=== PATIENT | female | born 1985 | race Caucasian/White ===

== ENCOUNTER → 2017-01-02 13:40 | Observation (INO) ==
--- NOTE | 2017-01-06 15:40 | Discharge Summary ---
Date of Encounter: 01/02/17 Time of Encounter: 13:35 - Discharge Diagnosis (1) 38 weeks gestation of Priority: Secondary Status: Acute (2) NST (non-stress test) reactive Priority: Primary Status: Acute - Discharge Medications Home Medications: Ferrous Sulfate [Iron] 1 tab PO BID 01/02/17 [History] Vit/Iron Fumarate/FA [ Tablet] 1 tab PO DAILY 01/02/17 [History ] Allergies/Adverse Reactions: Allergies Penicillins Allergy (Unknown, Verified 01/02/17 12:33) See Comments States she doesn't know. Had an adverse reaction as an infant. Date of admission: 01/02/17 12:07 Primary care physician: Christiane Juarez CNP - Patient Status Disposition: Home, Self-Care Condition: Good Overall status at discharge: patient is back to baseline - Discharge Instructions Follow Up With: Christiane Juarez CNP [Primary Care Provider] - Additional Instructions: LABOR AND DELIVERY DISCHARGE INSTRUCTIONS Signs and Symptoms to be Reported to your Doctor Immediately: * Sudden gush, continuous or intermittent lead of fluid from vagina (note the time of gush and color of fluid) * Onset of bright red vaginal bleeding with or without pain (if you had a vaginal exam during this visit you may notice some dark red spotting. This is normal.) * Contractions that are 5 minutes apart (from the beginning of one contraction to the beginning of the next) and last 45-60 seonds; contractions that you can no longer walk, talk or laugh through. * A change in the baby's activity. This could be an increase or decrease in activity. * Severe headache which does not go away with tylenol. * Sudden swelling in the face, hands, arms and/or legs. * Upper abdominal pain - sometimes associated with heartburn or nausea and is not relieved by Maalox, Mylanta or Tums. * Kick Counts __ One hour after a meal, lay down on one side in a quiet place. Count the number of time the baby moves during an hour. If less than 6 movements, notify your physician Diet: *Force fluids, 8 to 10 tall glasses of fluid per day - may include popsicles and jello *Limit caffeine - this includes chocolate, coffee, tea, any soft drink containing such as all karlo, Roland Yellow and Mountain Dew - Diet and Activity Activity: increase activity as tolerated Diet: advance to your usual diet Hospital Course NURSE CHEMICAL DEPENDENCY Time Attestation: Total time spent providing and/or coordinating discharge services: Exam - Constitutional Vitals: per nursing - VTE Reasons for not Prescribing Prophylaxis: Medical contraindication - Attending Attestation nate jameson md facog
== END | disposition home or self-care (01) ==
LOC: 1NENULAB
PROVIDERS: ADMIT Obstetrics & Gynecology; ATTEND Obstetrics & Gynecology

== ENCOUNTER 2017-01-08 06:00 | Inpatient (IN) ==
[2017-01-08] MEDS ORDERED: Metoclopramide 10 MG/2 ML VIAL IVP PRN (06:06)
[2017-01-08] MEDS ORDERED: miSOPROStol 25 MCG TABLET VG PRN (06:06)
[2017-01-08] MEDS ORDERED: Famotidine 20 MG/2 ML VIAL IVP PRN (06:06)
[2017-01-08] MEDS ORDERED: *HR* Nalbuphine 20 MG/ML AMPUL IVP PRN (06:11)
[2017-01-08] MEDS ORDERED: D5% in 0.45% NACL 1,000 ML IVC SCH (06:15)
[2017-01-08 06:37] LABS: Basophils % 0.3 %; Eosinophils # 0.1 K/mcL (0.0-0.6); Eosinophils % 1.2 %; Hematocrit 33.8 % (35.3-44.9); Hemoglobin 11.2 g/dL (11.5-15.4); Immature Granulocytes % 0.8 % (0-4); Lymphocytes # 2.6 K/mcL (0.6-4.6); Lymphocytes % 25.9 %; Mean Corpuscular HGB Conc 33.1 g/dL (31.6-35.5); Mean Corpuscular Hemoglobin 28.1 pg (28.0-33.3); Mean Corpuscular Volume 84.9 fL (83.0-100.0); Mean Platelet Volume 11.5 fL (9.4-12.4); Monocytes # 0.9 K/mcL (0.0-1.3); Monocytes % 9.3 %; Neutrophils # 6.3 K/mcL (1.6-8.9); Platelet Count 157 K/mcL (140-400); Red Blood Count 3.98 M/mcL (3.82-4.97); Red Cell Distribution Width 14.9 % (11.5-14.5); Segmented Neutrophils % 62.5 %
--- NOTE | 2017-01-08 07:48 | Anesthesia Evaluation PreOp ---
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 Had an adverse reaction as an . 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
[2017-01-08] MEDS ORDERED: Epidural Premix (fent/bupiv) 110 ML EP ONE (07:57)
--- NOTE | 2017-01-08 08:01 | OB/GYN History & Physical ---
Date of Encounter: 01/08/17 Time of Encounter: 07:59 Assessment and Plan (1) 40 weeks gestation of Current visit: Yes Status: Acute -Uncomplicated . Desires vaginal delivery -Planned induction in the next 24 hours. (2) Hepatitis Current visit: No Status: Chronic -Use extra precautions during delivery. (3) Cystic hygroma of fetus Current visit: Yes Status: Acute -Induction recommended at 39 weeks due to risk of still History of Present Illness Chief complaint: induction HPI: Ms. Dimas is a 31 year old female, 39 w 0d, , Hep C positive c/c for recommended induction. Patient is resting comfortably in bed. Denies any N/D/ Abdominal pain/pelvic pain. States that she does use a vaporizer daily. Has used IV drugs in the past. Fetus does have cystic hygroma, MFM at [facility] recommended patient have an induction at 39w for risk of still . Other vaginal deliveries were premature, but otherwise, uncomplicated. Past Med Surg Social Fam HX - Past Medical History Medical history: hepatitis (IV drug use. 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 Vaginal delivery uncomplicated. Medications and Allergies Ferrous Sulfate [Iron] 1 tab PO BID 01/02/17 [History] Vit/Iron Fumarate/FA [ Tablet] 1 tab PO DAILY 01/02/17 [History ] Allergies Penicillins Allergy (Unknown, Verified 01/02/17 12:33) See Comments States she doesn't know. Had an adverse reaction as an infant. Review of System OB - Cardiovascular Cardiovascular: no irregular heart rhythm - Respiratory Respiratory: wheezing, no dyspnea, no excessive phlegm production - Gastrointestinal Gastrointestinal: no abdominal pain, no heartburn - Neurological Nerological: no headache(s), no syncope - Psychiatric Psychiatric: no auditory hallucinations Exam - Vital Signs Vital signs: Initial Vital Signs Temp Pulse Resp BP 98.3 F 99 18 114/74 01/08/17 06:24 01/08/17 06:24 01/08/17 06:24 01/08/17 06:24 - Constitutional Constitutional: well developed, well nourished, no acute distress, average body habitus - HEENT HEENT: Normocephaly, Mucus Membranes Moist - Lungs Respiratory exam: wheezes (mild ) - Cardiovascular Cardiovascular exam: RRR - Abdomen Abdomen: Present: non tender Results Result Diagrams: 01/08/17 06:26 Abnormal lab results Hgb 11.2 g/dL (11.5-15.4) L 01/08/17 06:26 Hct 33.8 % (35.3-44.9) L 01/08/17 06:26 RDW 14.9 % (11.5-14.5) H 01/08/17 06:26 All other labs normal. - VTE Reasons for not Prescribing Prophylaxis: Treatment not Indicated - Low risk for VTE
[2017-01-08] MEDS ORDERED: Ringers Solution, Lactated 1,000 ML ONE ×2 (10:51→12:59)
--- NOTE | 2017-01-08 10:52 | OB Labor Progress Note ---
Date of Encounter: 01/08/17 Time of Encounter: 10:49 Labor Progress Note - Subjective Subjective: Patient resting in bed, denies any pain at this time. Discussed POC with patient. Patient denies any questions or concerns. - Cervix Cervix: 4/90/-1 - Heart Tones Heart Tones: 135 bpm moderate variability +15x15 accels no decels noted. CAt. 1 tracing. - [place]: 2-3 min apart - Interventions Interventions: SVE, AROM moderate amount of clear fluid. IUPC placed without difficulty. Patient tolerated well. - Plan Plan: Continue labor management.
[2017-01-08] MEDS ORDERED: EPHEDrine 50 MG/ML VIAL ONE (12:22)
--- NOTE | 2017-01-08 12:25 | Anesthesia Procedures ---
Date of Encounter: 01/08/17 Time of Encounter: 12:00 Procedures: Anesthesia - Epidural/Spinal Patient ID/Chart reviewed: Yes Patient examined: Yes OB Eval: Gestational age: term OB Eval: : 3 OB Eval: Hx Para: 2 OB Eval: Contractions: Non-stressed pattern Consent Obtained: Yes Site Prep: Aseptic Technique, Sterile prep and drape, 0.5% Chlorhexidine/Alcohol Patient position: upright Local Anesthetic: Lidocaine 1% Amount of Local Anesthetic used: 2 Touhy Needle Gauge: 18 Touhy Needle Depth (cm): 6 Catheter Depth at Skin (cm): 10 Test Dose (1.5% Lido + Epi): Volume given (mls): 3 Test Dose Result: Negative Loading Dose: Other: 12ml from solution Loading Dose Administered: Thru Catheter Infusion Med: 0.125% Bupivacaine w/ 2 mcg/ml Fentanyl Infusion Rate (mls/hr): [address]: Tegaderm, Tape Interspace Used: L3-L4 Loss of Resistance (JEROME): Yes (saline) Blood: No CSF: No Paresthesia: No Vitals + FHT's: vss though out, FHR stable per RN's
[2017-01-08] MEDS ORDERED: Oxytocin 20 units/ LR 1000 mL 20 UNIT/1,000 ML BAG IVC ONE ×2 (14:42→20:47)
--- NOTE | 2017-01-08 15:52 | OB/GYN Procedure Note ---
Delivery - Delivery Date: 01/08/17 Provider: Juan Luis Mishra Intrapartum events: none Delivery induction: misoprostol Delivery augmentation: rupture of membranes Delivery monitor: external FHT, external uterine, internal uterine Anesthesia: epidural Estimated Blood Loss: 300 - (s) A Infant Delivery Date: 01/08/17 Infant Delivery Time: 15:34 Presentation: vertex Position: JOSE ANTONIO Route of delivery: Gender: Male Viability: Viable Pounds: 7 Ounces: 6 Weight Gram: 3345 kg at 1 minute: 8 at 5 mins: 8 Shoulder Dystocia: not encountered Specimens collected: cord blood Placenta: spontaneous Cord: nuchal cord, nuchal cut - Repair Episiotomy: none Laceration Description: None - Complications Delivery complications: none - Disposition Mom disposition: stable in LDR disposition: stable in LDR
[2017-01-08] MEDS ORDERED: Sennosides 8.6 MG TABLET PO PRN (20:47)
[2017-01-08] MEDS ORDERED: Rho Immune Globulin 1,500 UNIT SYRINGE IM PRN (20:47)
[2017-01-08] MEDS ORDERED: Measles/Mumps/Rubella Vacc 0.5 ML VIAL SQ PRN (20:47)
[2017-01-08] MEDS ORDERED: Oxytocin 20 units/ LR 1000 mL 20 UNIT/1,000 ML BAG IV SCH (20:47)
[2017-01-08] MEDS: Ibuprofen 600 MG TABLET PO PRN (21:04)
[2017-01-08] MEDS: Acetaminophen 325 MG TABLET PO PRN (23:28)
[2017-01-09] MEDS: Ibuprofen 600 MG TABLET PO PRN ×3 (05:59→19:38)
[2017-01-09 07:41] LABS: Basophils % 0.3 %; Eosinophils # 0.1 K/mcL (0.0-0.6); Eosinophils % 0.9 %; Hematocrit 31.6 % (35.3-44.9); Hemoglobin 10.5 g/dL (11.5-15.4); Immature Granulocytes % 0.5 % (0-4); Lymphocytes # 2.3 K/mcL (0.6-4.6); Lymphocytes % 19.9 %; Mean Corpuscular HGB Conc 33.2 g/dL (31.6-35.5); Mean Corpuscular Hemoglobin 28.3 pg (28.0-33.3); Mean Corpuscular Volume 85.2 fL (83.0-100.0); Monocytes # 0.9 K/mcL (0.0-1.3); Monocytes % 7.5 %; Neutrophils # 8.2 K/mcL (1.6-8.9); Platelet Count 171 K/mcL (140-400); Red Blood Count 3.71 M/mcL (3.82-4.97); Red Cell Distribution Width 14.6 % (11.5-14.5); Segmented Neutrophils % 70.9 %
[2017-01-09] MEDS ORDERED: *HR* Labetalol 20 MG/4 ML SYRINGE IVP ONE (08:12)
[2017-01-09] MEDS ORDERED: *HR* HYDROcodone/Acet 5/325 mg TABLET PO ONE (08:12)
[2017-01-09 08:31] LABS: Alanine Aminotransferase 10 Units/L (0-55); Aspartate Amino Transferase 28 Units/L (5-34); BUN/Creatinine Ratio 13 (6-26); Blood Urea Nitrogen 8 mg/dL (7-20); Uric Acid 5.1 mg/dL (2.6-6.0); eGFR For African Americans > 60 (> 60); eGFR For Non-African Americans > 60 (> 60)
[2017-01-09 08:37] LABS: Lactate Dehydrogenase 278 Units/L (159-327)
[2017-01-09] MEDS: Prenatal Vit/FA 1 EACH TABLET PO SCH (08:43)
[2017-01-09] MEDS ORDERED: NON-FORMULARY MEDICATION 1 EACH EACH (Prenatal Vit/Iron Fumarate/Fa [Prenatal Tablet] 1 TA PO SCH (09:00)
--- NOTE | 2017-01-09 09:03 | OB/GYN Progress Note ---
Date of Encounter: 01/09/17 Time of Encounter: 08:59 - Assessment and Plan (1) Spontaneous vaginal delivery Current Visit: Yes Status: Acute Continue routine care discharge home tomorrow. Subjective - Subjective Principal diagnosis: day 1 Interval history: Patient sitting in bed. Patient reports severe "period like" cramps. Patient was given a 1 time order for [place] since there was no relief with motrin. Patient's BP was elevated this morning. Discussed BPs with Dr. Valencia. Order was given for labetalol 10mg IVP however patient no longer had IV access so order was given for 100mg po x1. Will check BPs Q 4. Patient reports: appetite normal, voiding normally, ambulating normally [place]: doing well, bottle feeding Objective - Latest Vital Signs Latest vital signs: Vital Signs Temp Pulse Pulse Resp BP Pulse Ox 01/09/17 08:18 98.1 F 74 16 146/106 01/09/17 05:42 97.5 F L 80 16 132/94 98 01/08/17 23:15 74 135/84 01/08/17 20:49 84 01/08/17 18:50 98.1 F 65 16 119/87 99 01/08/17 17:50 98.2 F 74 16 127/83 98 01/08/17 17:45 98.0 F 75 14 148/94 100 Intake and Output 01/08/17 01/09/17 01/09/17 23:59 07:59 15:59 Output Total 1250 / 1250 400 / 400 Balance -1250 / -1250 -400 / -400 Output: Urine 1250 / 1250 400 / 400 Other: Weight 62.4 kg - Exam Lungs: bilateral: normal Chest: Normal S1, Normal S2 Extremities: Present: normal Abdomen: Present: normal appearance, soft Uterus: Present: normal, firm Uterus Position: 1 Finger Below Umbilicus, Midline - Labs Labs: Laboratory Results - last 24 hr 01/08/17 01/09/17 01/09/17 16:00 06:53 06:53 WBC 11.6 H RBC 3.71 L Hgb 10.5 L Hct 31.6 L MCV 85.2 MCH 28.3 MCHC 33.2 RDW 14.6 H Plt Count 171 MPV 12.0 Immature Gran % 0.5 Seg Neutrophils % 70.9 Lymphocytes % 19.9 Monocytes % 7.5 Eosinophils % 0.9 Basophils % 0.3 Neutrophils # 8.2 Lymphocytes # 2.3 Monocytes # 0.9 Eosinophils # 0.1 Basophils # 0.0 BUN 8 Creatinine 0.60 Est GFR ( Amer) > 60 Est GFR (Non-Af Amer) > 60 BUN/Creatinine Ratio 13 Uric Acid 5.1 AST 28 ALT 10 Lactate Dehydrogenase 278 Baby's Blood Type A RH NEGATIVE Mother's Blood Type A RH NEGATIVE Rhogam Indicated NO
[2017-01-10] MEDS: Ibuprofen 600 MG TABLET PO PRN ×2 (01:23→08:04)
[2017-01-10] MEDS: Acetaminophen 325 MG TABLET PO PRN (04:25)
[2017-01-10] MEDS: Prenatal Vit/FA 1 EACH TABLET PO SCH (08:04)
[2017-01-10 08:59] VITALS: BP 121/70
--- NOTE | 2017-01-10 09:21 | Discharge Summary ---
Date of Encounter: 01/10/17 Time of Encounter: 09:20 - Discharge Diagnosis (1) Spontaneous vaginal delivery Priority: Primary Status: Acute Comments: patient doing well, ok for discharge - Discharge Medications Home Medications: Ferrous Sulfate [Iron] 1 tab PO BID 01/02/17 [History] Vit/Iron Fumarate/FA [ Tablet] 1 tab PO DAILY 01/02/17 [History ] Allergies/Adverse Reactions: Allergies Penicillins Allergy (Unknown, Verified 01/02/17 12:33) See Comments States she doesn't know. Had an adverse reaction as an . Data Procedures and tests throughout hospitalization: Laboratory Tests 01/08/17 01/08/17 01/09/17 06:26 16:00 06:53 WBC 10.1 11.6 H RBC 3.98 3.71 L Hgb 11.2 L 10.5 L Hct 33.8 L 31.6 L MCV 84.9 85.2 MCH 28.1 28.3 MCHC 33.1 33.2 RDW 14.9 H 14.6 H Plt Count 157 171 MPV 11.5 12.0 Immature Gran % 0.8 0.5 Seg Neutrophils % 62.5 70.9 Lymphocytes % 25.9 19.9 Monocytes % 9.3 7.5 Eosinophils % 1.2 0.9 Basophils % 0.3 0.3 Neutrophils # 6.3 8.2 Lymphocytes # 2.6 2.3 Monocytes # 0.9 0.9 Eosinophils # 0.1 0.1 Basophils # 0.0 0.0 BUN Creatinine Est GFR ( Amer) Est GFR (Non-Af Amer) BUN/Creatinine Ratio Uric Acid AST ALT Lactate Dehydrogenase Baby's Blood Type A RH NEGATIVE Mother's Blood Type A RH NEGATIVE Rhogam Indicated NO 01/09/17 06:53 WBC RBC Hgb Hct MCV MCH MCHC RDW Plt Count MPV Immature Gran % Seg Neutrophils % Lymphocytes % Monocytes % Eosinophils % Basophils % Neutrophils # Lymphocytes # Monocytes # Eosinophils # Basophils # BUN 8 Creatinine 0.60 Est GFR ( Amer) > 60 Est GFR (Non-Af Amer) > 60 BUN/Creatinine Ratio 13 Uric Acid 5.1 AST 28 ALT 10 Lactate Dehydrogenase 278 Baby's Blood Type Mother's Blood Type Rhogam Indicated Date of admission: 01/08/17 06:01 Primary care physician: Christiane Juarez CNP Consults: 01/08/17 20:47 Consult to Employment Officer [CONS] Routine Comment: Vaginal delivery, consult needed - Patient Status Disposition: Home, Self-Care Condition: Good Functional capacity at discharge: independent ambulation Overall status at discharge: patient is progressing back to baseline - Discharge Instructions Follow Up With: Christiane Juarez CNP [Primary Care Provider] - 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
== END 2017-01-10 11:57 | disposition home or self-care (01) | DRG 560 ==
LOC: 1NENULAB 06:01 → 1NENUOBS 18:23
PROVIDERS: ADMIT Obstetrics & Gynecology; ATTEND Obstetrics & Gynecology